=== PATIENT | male | born 1940 | race Caucasian/White ===

== ENCOUNTER 2017-01-07 12:23 | Observation (INO) | payer OTHER ==
[2017-01-07] MEDS ORDERED: NS 500 ML IV ONE (12:32)
[2017-01-07] MEDS ORDERED: ONDANSETRON 4 MG/2 ML VIAL IVP ONE (12:32)
[2017-01-07] MEDS ORDERED: HYDROmorphONE/DILAUDID 1 MG/ML INJ IVP ONE ×4 (12:32→15:36)
[2017-01-07] MEDS ORDERED: IOPAMIDOL (ISOVUE-300) 100 ML BTL ONE (12:37)
--- NOTE | 2017-01-07 12:41 | EDPHY ---
H & P Time Seen by Provider: 01/07/17 12:24 HPI/ROS: HPI Fall, rib injury. 76-year-old male by private vehicle with his . This patient was at home. He misstepped and fell down 2-3 stairs leading from inside his house to his garage. He thinks that he caught the left side of his ribs on the angle of the stair. He comes in complaining of severe pain to the left lateral mid chest wall. He denies hitting his head. No loss of consciousness. He is not on Coumadin or other anticoagulants. Denies any neck pain. No loss of sensation or weakness in his extremities. No other complaints. ROS: Constitutional: No fever, no chills. No weakness. Eyes: No discharge. No changes in vision. ENT: No sore throat. No nasal congestion or rhinorrhea. Respiratory: No cough. No shortness of breath. Cardiac: No chest pain, no palpitations. Gastrointestinal: No abdominal pain, no vomiting, no diarrhea. Genitourinary: No hematuria. No dysuria or increased frequency with urination. Musculoskeletal: As above. No neck pain. No myalgias or arthralgias. Skin: No rashes. Neurological: No headache. No focal weakness or altered sensation. Past medical history: Hypertension, hyperlipidemia, GERD, hypothyroid, orthopedic surgeries. Social history: Former smoker. No alcohol. Here with his . Physical Exam: General Appearance: Alert, he appears uncomfortable, he is wincing in pain. This patient is responding to questions appropriately and in full sentences. This patient appears well-hydrated and well-nourished. Head: Normocephalic atraumatic. Face: Facial bones are stable on palpation. Eyes: Pupils equal and round and reactive to light, no pallor or injection. No lid erythema or edema. ENT, Mouth: Mucous membranes moist. Dentition is intact. No malocclusion of the jaw. No tongue lacerations or abrasions. Pharynx is clear. The bilateral nasal canals are clear. No septal hematoma. Respiratory: There are no retractions, lungs are clear to auscultation with good air movement bilaterally. Chest wall is stable to AP and lateral palpation. He has significant tenderness on palpation involving the left upper to mid abdomen across the left lateral chest wall to the left flank. There is no bony step-off or crepitus on palpation of these areas. No ecchymosis, edema , erythema noted. No rash. The skin is intact. Cardiovascular: Regular rate and rhythm. No murmur. Gastrointestinal: Abdomen is soft and nontender, no masses, bowel sounds normal. Neurological: Motor sensory function is intact. Cranial nerves are normal. Cerebellar function intact. Skin: Warm and dry, no rashes. No lacerations, abrasions or contusions. Musculoskeletal: Neck is supple and nontender. The trachea is midline. No midline cervical, thoracic, lumbar or sacral tenderness on palpation. No flank tenderness on palpation. Extremities are symmetrical, full range of motion. All joints in the bilateral upper and bilateral lower extremities range without pain or impingement. No tenderness on palpation of the long bones in the bilateral upper and bilateral lower extremities. Psychiatric: No agitation. No depression. Database: EKG: Imaging: CT scan of chest abdomen and pelvis with IV contrast: Left-sided ribs 6 through 10 posterior medial fractures with minimal displacement and left-sided posterior lateral rib fractures 7 through 10 with more displacement. No other significant pathology. Results were discussed with staff radiologist Dr. Fitz Millard. Procedures: Emergency department course: IV placed. He was placed on a monitor. He was started on IV normal saline with 500 cc to be given over the next hour. He consents to CT imaging to evaluate for rib fractures as well as possible splenic and renal injuries. He was initially given 0.5 mg of IV hydromorphone. This will be repeated as needed until his pain is controlled up to 2 mg total. He was given 4 mg of IV Zofran for nausea. 1:00 p.m., patient re-evaluated. He has had 1.5 mg of IV hydromorphone. His pain is currently well controlled. He will go to CT shortly. 1:45 p.m., patient re-evaluated. Pain well controlled at this time. Results of his CT scan discussed. Vital signs reviewed. Blood pressure 125/82, heart rate in the 60s. Pulse oximetry on 1-2 L of nasal cannula oxygen is 95%. Discussed plan for admission to our trauma service. All of his questions were answered. He will go by ambulance and consents to this. Trauma surgery paged. 2:05 p.m., spoke with on-call trauma surgeon Dr. Dong Mcdowell. Case discussed in detail with him. He accepts this patient for admission. The patient will be transferred by ambulance through the emergency department at [facility] before going up to a floor bed. 2:15 p.m., spoke with emergency physician attending Dr. Sanjuanita Spangler. She is aware this patient will be coming to the emergency department on his way to admission to the trauma service under the care of Dr. Mcdowell. 2:40 p.m., patient re-evaluated. Pain well controlled. Vital signs normal. Patient transferred by ambulance in stable condition. Differential Diagnosis: The differential diagnosis on this patient includes but is not limited to rib fractures, rib contusions. Splenic laceration, renal laceration, pneumothorax, other significant traumatic injury unlikely. This represents a partial list of diagnoses considered. These considerations are based on history, physical exam , past history, reassessment and diagnostic testing. Smoking Status: Former smoker Constitutional: Initial Vital Signs Temperature (C) 36.8 C 01/07/17 12:26 Heart Rate 65 01/07/17 12:26 Respiratory Rate 16 01/07/17 12:26 Blood Pressure 136/106 H 01/07/17 12:26 O2 Sat (%) 99 01/07/17 12:26 O2 Delivery Mode Room Air O2 (L/minute) 2 Allergies/Adverse Reactions: No Known Allergies Allergy (Verified 01/07/17 12:25) Home Medications: Medication Instructions Recorded Amlodipine Besylate 03/26/14 Hydrochlorothiazide 03/26/14 Levothyroxine 03/26/14 Losartan Potassium 03/26/14 Lovastatin 03/26/14 Latanoprost 0.005% 01/07/17 Omeprazole 01/07/17 Timolol 0.5% 01/07/17 Medical Decision Making - Data Points Laboratory Results: Laboratory Results 01/07/17 12:35 01/07/17 12:35 01/07/17 01/07/17 12:35 12:35 WBC 7.43 10^3/uL 10^3/uL (3.80-9.50) RBC 5.15 10^6/uL 10^6/uL (4.40-6.38) Hgb 15.5 g/dL g/dL (13.7-17.5) Hct 46.4 % % (40.0-51.0) MCV 90.1 fL fL (81.5-99.8) MCH 30.1 pg pg (27.9-34.1) MCHC 33.4 g/dL g/dL (32.4-36.7) RDW 13.2 % % (11.5-15.2) Plt Count 197 10^3/uL 10^3/uL (150-400) MPV 9.9 fL fL (8.7-11.7) Neut % (Auto) 61.4 % % (39.3-74.2) Lymph % (Auto) 28.0 % % (15.0-45.0) Carver % (Auto) 8.6 % % (4.5-13.0) Eos % (Auto) 1.1 % % (0.6-7.6) Baso % (Auto) 0.4 % % (0.3-1.7) Nucleat RBC Rel Count 0.0 % % (0.0-0.2) Absolute Neuts (auto) 4.56 10^3/uL 10^3/uL (1.70-6.50) Absolute Lymphs (auto) 2.08 10^3/uL 10^3/uL (1.00-3.00) Absolute Monos (auto) 0.64 10^3/uL 10^3/uL (0.30-0.80) Absolute Eos (auto) 0.08 10^3/uL 10^3/uL (0.03-0.40) Absolute Basos (auto) 0.03 10^3/uL 10^3/uL (0.02-0.10) Absolute Nucleated RBC 0.00 10^3/uL 10^3/uL (0-0.01) Immature Gran % 0.5 % % (0.0-1.1) Immature Gran # 0.04 10^3/uL 10^3/uL (0.00-0.10) Sodium 139 mEq/L mEq/L (134-144) Potassium 4.5 mEq/L mEq/L (3.5-5.2) Chloride 98 mEq/L mEq/L (97-110) Carbon Dioxide 28 mEq/l mEq/l (22-31) Anion Gap 13 mEq/L mEq/L (8-16) BUN 16 mg/dL mg/dL (7-23) Creatinine 1.1 mg/dL mg/dL (0.7-1.3) Estimated GFR > 60 Glucose 96 mg/dL mg/dL (70-100) Calcium 9.6 mg/dL mg/dL (8.5-10.4) Medications Given: Discontinued Medications Hydromorphone HCl (Dilaudid) 0.5 mg IVP EDNOW ONE Stop: 01/07/17 12:33 Last Admin: 01/07/17 12:43 Dose: 0.5 mg Hydromorphone HCl (Dilaudid) 0.5 mg IVP EDNOW ONE Stop: 01/07/17 12:50 Last Admin: 01/07/17 12:50 Dose: 0.5 mg Hydromorphone HCl (Dilaudid) 0.5 mg IVP EDNOW ONE Stop: 01/07/17 13:00 Last Admin: 01/07/17 13:02 Dose: 0.5 mg Sodium Chloride (Ns) 500 mls @ 0 mls/hr IV ONCE ONE; Wide Open PRN Reason: Protocol Stop: 01/07/17 12:33 Last Admin: 01/07/17 12:35 Dose: 500 mls Ondansetron HCl (Zofran) 4 mg IVP EDNOW ONE Stop: 01/07/17 12:33 Last Admin: 01/07/17 12:40 Dose: 4 mg Departure - Departure Disposition: [facility] Inpatient Acute Clinical Impression: Multiple rib fractures, Flail chest Condition: Fair Referrals: Merline Yost MD [Primary Care Provider] - As per Instructions
[2017-01-07 12:42] LABS: PLATELET COUNT 197 10^3/uL (150-400)
--- NOTE | 2017-01-07 18:51 | GCON ---
[f rep st] CONSULTATION DATE OF CONSULTATION: 01/07/2017 The patient was seen and evaluated at approximately 5:30 p.m. on the general care floor at [facility]. HPI: Patient is a 76-year-old man who was walking in some socks at home when he slipped and fell dirk n a couple of stairs landing on his left side. He had immediate pain in his ribs but really no other symptoms. He presented to the emergency department where a number of imaging studies were done and he was found to have several rib fractures. He also has several thoracic transverse process fracture s and his imaging was read as also having a possible nondisplaced laminar fracture at T10. Again, he does not have any neurologic symptoms at all. Had no loss of consciousness and currently has no com plaints other than some pain in his left chest around the area of his ribs. He has not had any back pain and currently does not have any back pain. He is not taking any anticoagulants. REVIEW OF SYSTEMS: A 10-point Review of Systems is negative other than that described above in the H PI. PAST MEDICAL HISTORY: 1. Hypertension. 2. Hyperlipidemia. 3. Gastroesophageal reflux. 4. Hypothyroidism. 5. Number of orthopedic surgeries. SOCIAL HISTORY: Patient is not a current smoker. He denies any alcohol and is accompanied here with his . FAMILY HISTORY: Reviewed, but is noncontributory to this admission. ALLERGIES: No known drug allergies. HOME MEDICATIONS: 1. Amlodipine. 2. Hydrochlorothiazide. 3. Levothyroxine. 4. Losartan. 5. Lovastatin. 6. Latanoprost. 7. Omeprazole. 8. Timolol. PHYSICAL EXAM: VITAL SIGNS: Currently, he is afebrile with normal stable vital signs. NEUROLOGIC: His cranial nerves 2-12 are grossly normal. His speech is clear and fluent. He has full 5/5 streng th at the deltoids, biceps, triceps, wrist flexion, extension, and wad blanking press adjuster bilaterally. In the lower ex tremities, he has 5/5 strength of the hip flexors and extensors, knee flexors and extensors, and plan tar and dorsiflexion bilaterally. His sensation is intact to light touch and pain. Deep tendon refl exes are normal. On palpation of his back, he does not have any real pain in the thoracic or lumbar region but does have some pain with palpation out over the ribs. IMAGING REVIEW: He does have a couple of mid thoracic, nondisplaced, transverse process fractures on the left. What was read as a laminar fracture at T10 is nondisplaced, and I actually favor that thi s may be a vessel rather than a fracture. The patient does not have any pain in this area. It is po ssible it could also represent an old injury. LABORATORY DATA: His white count is 7.4, hemoglobin 15.5, hematocrit 46.4, platelet count is a 197,0 00. Sodium is 139, potassium 4.5, BUN 16, creatinine 1.1, glucose is 96. ASSESSMENT AND PLAN: Patient is a 76-year-old man who fell down some stairs today. He does have a c ouple of nondisplaced, transverse process fractures in the thoracic spine and I actually do not think he has a fracture at T10. Nonetheless, none of these fractures would affect the stability of his sp ine in any way, so he may be up and mobilized without any bracing or any other intervention. I do no t think he needs further neurosurgical followup, but I did tell him if he does develop back pain at a ny time after he gets home, he is welcome to call us and follow up in the clinic. Beyond that, I do not think he needs any further imaging or other surgical interventions. Thanks for the kind consultation. /[id number]/MODL
[2017-01-07] MEDS: OXYCODONE/APAP 5/325 TAB PO PRN (19:52)
[2017-01-07] MEDS ORDERED: ONDANSETRON DISINTEGRATING 4 MG TAB PO PRN (20:16)
--- NOTE | 2017-01-07 21:01 | GHP ---
[f rep st] PREOP HISTORY AND PHYSICAL DATE OF ADMISSION: 01/07/2017 HISTORY OF PRESENT ILLNESS: A 76-year-old male, who fell down the stairs at home. Denies any loss o f consciousness. He complains of some left rib fracture pain. He was seen in the emergency room and admitted at this time for observation, analgesia, as well as a neurosurgery consult. He is on no bl ood-thinning medicines, and no major medical problems to contribute to this issue. CT scan reveals m ultiple left rib fractures, and a single posterior right rib fracture. He has some thoracic spine tr ansverse process fractures, and a questionable T10 lamina fracture. He is admitted at this time for observation. REVIEW OF SYSTEMS: Reveals no major medical issues not contained in the past history or the present illness. A full 10-point review of systems was completed. SOCIAL HISTORY: He is an ex-smoker and does not drink. PAST MEDICAL HISTORY: Includes hypertension, hypothyroidism, some orthopedic surgical procedures, an d elevated lipids. ALLERGIES: None. MEDICATIONS: Amlodipine, HCTZ, timolol eyedrops, omeprazole, lovastatin, losartan, levothyroxine, an d latanoprost eyedrops. PHYSICAL EXAMINATION: GENERAL: An alert, cooperative 76-year-old male in no acute distress. He is oriented and alert. HEENT: Shows no signs of trauma. Pupils are equal and reactive. EOMs are inta ct. TMs are clear. There are no oral lesions. He has good occlusion. NECK: Supple, nontender. N o thyromegaly or adenopathy, and no carotid bruits. CHEST: Clear and symmetric, although he is quit e tender in his left lower posterior rib cage. CARDIAC: Regular rhythm without murmurs. ABDOMEN: Soft, nontender, nondistended, with positive bowel sounds. No hernias or masses. Pelvis is intact a nd nontender. EXTREMITIES: Reveal full range of motion, full distal pulses. NEUROLOGIC: Physiolog ic and symmetric. IMPRESSION: 1. Blunt chest trauma with multiple left rib fractures. 2. Thoracic spinous process nondisplaced fractures, questionable T10 lamina fracture. PLAN: Admit for observation. Neurosurgical consultation and analgesia. /[id number]/MODL
[2017-01-08] MEDS: OXYCODONE/APAP 5/325 TAB PO PRN ×4 (02:51→16:00)
[2017-01-08 05:07] LABS: PLATELET COUNT 121 10^3/uL (150-400)
--- NOTE | 2017-01-08 09:36 | TRAUMAPN ---
Assessment/Plan: no complaints. min pain - well controlled with oral meds. no SOB. no extremity complaints. no neck or back complaints. afebrile. vss. comfortable. neck nontender. heart reg. lungs clear. approp left chest wall tenderness. abd nontender. ext nontender. doing well. home today Objective: Vital Signs Temp Pulse Resp BP Pulse Ox 36.3 C 55 L 14 108/69 97 01/08/17 08:00 01/08/17 08:00 01/08/17 08:00 01/08/17 08:00 01/08/17 08:00 Laboratory Results 01/08/17 04:52 01/07/17 01/08/17 01/09/17 05:59 05:59 05:59 Intake Total 500 Output Total 350 430 Balance 150 -430
--- NOTE | 2017-01-08 10:08 | GDS ---
[f rep st] DISCHARGE SUMMARY REASON FOR ADMISSION: Fall. HOSPITAL COURSE: 76-year-old male sustained a fall down the stairs at home without loss of consciousness. He was admitted for further observation and pain control. Injuries included multiple left-sided rib fractures, #6 through 10, as well as nondisplaced 9th and 10th transverse process fractures. He was seen by Dr. Tian from the neurosurgical service, who reviewed his films and exam. He felt that there was no evidence of an acute laminar fracture as possibly suggested on CT, along with a clinically benign back exam. The patient 's pain was well controlled with oral analgesics. He was discharged to home the following day in good condition. He was to resume all pre-hospital medications. He was given prescriptions for oxycodone for as needed for discomfort. It was recommended that he use ibuprofen as needed for discomfort as well. He will follow up with his primary care doctor as scheduled for routine followup care. He was given followup information for Drs. Wagner and Jaylan as needed for any further trauma-related issues. /[id number]/MODL MTDD
[2017-01-08 11:51] VITALS: BP 101/57; PULSE 51; RESP 12; TEMP 99.2; O2SAT 94
--- NOTE | 2017-01-08 15:10 | PDHOMEO2F ---
Home Oxygen Face to Face Home Orders: I certify that a physician or a nurse practitioner or physician's assistant finance director has had a [id number] encounter with this patient on the date of this order due to the diagnosis listed, which relates to the primary reason the patient requires home oxygen. Alternative treatments have been tried, or considered, and deemed ineffective. It is anticipated that supplemental oxygen will result in improvement with treatment. Home oxygen qualifying diagnosis: hypoxia SpO2 on room air (%): 84 Frequency of home oxygen needed: continuous Home oxygen liters per minute: 1-2 Home oxygen delivery device: nasal cannula Concentrator: Yes E-tanks for mobility and back up: Yes If ordering portable O2, is the patient mobile in the home?: Yes I certify that, based on these findings, the home oxygen is medically necessary for this patient for the following length of time. Length of time home oxygen needed: 1 week
--- NOTE | 2017-01-08 15:10 | PDHOMEO2F ---
Home Oxygen Face to Face Home Orders: I certify that a physician or a nurse practitioner or physician's fundraising assistant has had a [id number] encounter with this patient on the date of this order due to the diagnosis listed, which relates to the primary reason the patient requires home oxygen. Alternative treatments have been tried, or considered, and deemed ineffective. It is anticipated that supplemental oxygen will result in improvement with treatment. Home oxygen qualifying diagnosis: hypoxia SpO2 on room air (%): 84 Frequency of home oxygen needed: continuous Home oxygen liters per minute: 1-2 Home oxygen delivery device: nasal cannula Concentrator: Yes E-tanks for mobility and back up: Yes If ordering portable O2, is the patient mobile in the home?: Yes I certify that, based on these findings, the home oxygen is medically necessary for this patient for the following length of time. Length of time home oxygen needed: 1 week
--- NOTE | 2017-01-08 15:10 | PDHOMEO2F ---
Home Oxygen Face to Face Home Orders: I certify that a physician or a nurse practitioner or physician's household personal assistant has had a [id number] encounter with this patient on the date of this order due to the diagnosis listed, which relates to the primary reason the patient requires home oxygen. Alternative treatments have been tried, or considered, and deemed ineffective. It is anticipated that supplemental oxygen will result in improvement with treatment. Home oxygen qualifying diagnosis: hypoxia SpO2 on room air (%): 84 Frequency of home oxygen needed: continuous Home oxygen liters per minute: 1-2 Home oxygen delivery device: nasal cannula Concentrator: Yes E-tanks for mobility and back up: Yes If ordering portable O2, is the patient mobile in the home?: Yes I certify that, based on these findings, the home oxygen is medically necessary for this patient for the following length of time. Length of time home oxygen needed: 1 week
== END 2017-01-08 17:05 | disposition home or self-care (01) ==
LOC: CED 12:23 → CEDHOLD 14:06 → INTOOBSV 14:06 → F3N 16:39
PROVIDERS: ADMIT Surgery; ATTEND Surgery
DX: S22.5XXA Flail chest, initial encounter for closed fracture (principal); S22.078A Other fracture of T9-T10 vertebra, initial encounter for closed fracture; W10.8XXA Fall (on) (from) other stairs and steps, initial encounter; Y92.008 Other place in unspecified non-institutional (private) residence as the place of occurrence of the external cause; K44.9 Diaphragmatic hernia without obstruction or gangrene; I10 Essential (primary) hypertension; E78.5 Hyperlipidemia, unspecified; K21.9 Gastro-esophageal reflux disease without esophagitis; E03.9 Hypothyroidism, unspecified; Z87.891 Personal history of nicotine dependence
CPT/HCPCS: 71010; 71260; 74177; 92523; 96374; 96375; 97161; 97165; 99285; G0378; G8978; G8979; G8980; G8987; G8988; G8989; G9168; G9169; G9170; J1170; J2405; Q9967; 80048-PO; 85025-PO